=== PATIENT | male | born 2000 | race Caucasian/White ===

== ENCOUNTER 2021-02-28 12:20 | Emergency (ER) | payer SELFPAY ==
--- NOTE | 2021-02-28 15:11 | EDM.PDOC ---
ED HPI GENERAL MEDICAL PROBLEM - General Chief Complaint: Upper Extremity Injury/Pain Stated Complaint: object in ear Time Seen by Provider: 02/28/21 14:06 Source of Information: Reports: Patient History Limitations: Reports: No Limitations - History of Present Illness INITIAL COMMENTS - FREE TEXT/NARRATIVE: patient presented to the ER with a c/o right ear check up. Reports that he used a q-tip earlier today and thinks that some of the cotton is stuck inside.\ He is here for a check up no fever or chills. no hearing problems. Review of Systems - Review of Systems Review Of Systems: See Below Constitutional: Reports: No Symptoms Eyes: Reports: No Symptoms Respiratory: Reports: No Symptoms Cardiovascular: Reports: No Symptoms GI/Abdominal: Reports: No Symptoms Musculoskeletal: Reports: No Symptoms ED EXAM, GENERAL - Physical Exam Exam: See Below Exam Limited By: No Limitations General Appearance: Alert, WD/WN, No Apparent Distress Eye Exam: Bilateral Eye: EOMI, PERRL Ears: Normal External Exam, Normal TMs Head: Atraumatic Respiratory/Chest: No Respiratory Distress Cardiovascular: Normal Peripheral Pulses Neurological: Alert, Oriented Course - Re-Assessments/Exams Free Text/Narrative Re-Assessment/Exam: normal ears exam - no FB. slight irritation from the q-tip use Departure - Departure Time of Disposition: 15:10 Disposition: Home, Self-Care 01 Condition: Good Clinical Impression: Normal ear exam - Discharge Information *PRESCRIPTION DRUG MONITORING PROGRAM REVIEWED*: Not Applicable *COPY OF PRESCRIPTION DRUG MONITORING REPORT IN PATIENT CHILO: Not Applicable Referrals: PCP,None [Primary Care Provider] - Forms: ED Department Discharge - Problem List & Annotations (1) Normal ear exam SNOMED Code(s): 973958635 Code(s): Z01.10 - ENCOUNTER FOR EXAM OF EARS AND HEARING W/O ABNORMAL FINDINGS Status: Acute Priority: Low Current Visit: Yes - Problem List Review Problem List Initiated/Reviewed/Updated: Yes - Assessment/Plan Plan: - recommend to avoid using q-tips and replace that with ear drips - follow up with PCP as needed
== END 2021-02-28 14:30 | disposition home or self-care (01) ==
LOC: LB.ED 12:20
DX: Z01.10 Encounter for examination of ears and hearing without abnormal findings (principal)
CPT/HCPCS: 99281; 99282

== ENCOUNTER 2022-08-22 17:43 | Emergency (ER) | payer MEDICAID ==
[2022-08-22] MEDS ORDERED: Naproxen 500 MG Tab ONE (18:00)
[2022-08-22] MEDS ORDERED: Ketorolac 60 MG/2 ML SDV IM ONE (18:02)
== END 2022-08-22 18:45 | disposition home or self-care (01) ==
LOC: LB.ED 17:43
DX: S62.396A Other fracture of fifth metacarpal bone, right hand, initial encounter for closed fracture (principal); W20.8XXA Other cause of strike by thrown, projected or falling object, initial encounter
CPT/HCPCS: 73130-RT; 96372; 99282; 99283; A9270-GY; J1885